=== PATIENT | female | born 1965 | race African-American/Black ===

== ENCOUNTER → 2025-01-13 | Day surgery (SDC) | payer OTHER ==
[~2025-01-13] MED LIST: ASPIR 8181 MG PO; FISH OIL 1,0001 EAC7; LIDOCAINE HCL 2% LOCAL INJ 5 ML SDV VIAL INJ ONE; LOSARTAN POTASS25 MG PO; METOPROLOL SUCC25 MG PO; MIDAZOLAM HCL 2 MG/2 ML VIAL ONE; MOUNJARO5 MG/0.5 M; MULTI-VITAMIN1 EACH PO; PROPOFOL IV EMULSION 10 MG/ML 20 ML VIAL ONE; VENTOLIN HFA18 GM INH; VITAMIN D31 ML
[2025-01-13] MEDS: LACTATED RINGER'S 1,000 ML ONE (11:41)
[2025-01-13 13:19] VITALS: TEMP 98.4
[2025-01-13 14:00] VITALS: BP 106/71; PULSE 61; RESP 16; O2SAT 99
== END | disposition home or self-care (01) ==
LOC: OR 11:01
PROVIDERS: ATTEND Internal Medicine Gastroenterology
DX: Z12.11 Encounter for screening for malignant neoplasm of colon (principal); D12.2 Benign neoplasm of ascending colon; D12.3 Benign neoplasm of transverse colon; D12.5 Benign neoplasm of sigmoid colon; K57.30 Diverticulosis of large intestine without perforation or abscess without bleeding; K64.8 Other hemorrhoids; E11.9 Type 2 diabetes mellitus without complications; I10 Essential (primary) hypertension; E78.5 Hyperlipidemia, unspecified; R01.1 Cardiac murmur, unspecified; Z88.0 Allergy status to penicillin; Z91.018 Allergy to other foods; Z79.82 Long term (current) use of aspirin; Z79.85 Long-term (current) use of injectable non-insulin antidiabetic drugs; Z68.36 Body mass index [BMI] 36.0-36.9, adult; Z86.79 Personal history of other diseases of the circulatory system
CPT/HCPCS: 36415; 45384; 82948; J2003; J2250; J2704; J7121; 45378